=== PATIENT | female | born 1995 | race African-American/Black ===

== ENCOUNTER 2017-08-16 20:13 | Emergency (ER) | payer MEDICAID ==
[~2017-08-16] VITALS: Ht 152.4 cm; Wt 73.6 kg
[2017-08-16 20:18] VITALS: Ht 152.4 cm; Wt 73.6 kg
[2017-08-16 20:56] LABS: HCG URINE NEGATIVE (NEGATIVE)
[2017-08-16 21:25] LABS: APPEARANCE CLEAR (CLEAR); BILIRUBIN NEGATIVE (NEGATIVE); COLOR YELLOW (YELLOW); GLUCOSE NEGATIVE (NEGATIVE); KETONE NEGATIVE (NEGATIVE); NITRITE NEGATIVE (NEGATIVE); PROTEIN NEGATIVE (NEGATIVE); SPECIFIC GRAVITY 1.015 (1.005-1.020); UROBILINOGEN NORMAL (NORMAL)
[2017-08-16 21:27] LABS: BACTERIA MODERATE /hpf (NONE SEEN); EPITHELIAL CELLS 0-5 /hpf (0-5); RED CELLS - URINE OCC /hpf (0-5); WHITE CELLS - URINE 0-5 /hpf (0-5)
[2017-08-16 22:36] VITALS: BP 135/70
== END 2017-08-16 22:36 | disposition home or self-care (01) ==
LOC: D.ER 20:13
PROVIDERS: Family Medicine
DX: N92.6 Irregular menstruation, unspecified (principal); F17.200 Nicotine dependence, unspecified, uncomplicated

== ENCOUNTER 2017-08-30 09:04 | Emergency (ER) | payer MEDICAID ==
[~2017-08-30] VITALS: Ht 152.4 cm; Wt 75.0 kg
[2017-08-30 09:09] VITALS: Ht 152.4 cm; Wt 75.0 kg
[2017-08-30 10:15] LABS: BASOPHILS 0.2 % (0-2); EOSINOPHILS 2.8 % (0-7); HEMATOCRIT 43.3 % (36.0-48.0); HEMOGLOBIN 14.8 g/dL (12-16); IMMATURE GRANULOCYTES 0.6 % (0-5); LYMPHOCYTES 34.8 % (15-50); MCH 29.8 pg (26.0-34.0); MCHC 34.2 g/dL (31.0-37.0); MCV 87.1 fL (80.0-100.0); MEAN PLATELET VOLUME 9.6 fL (7.4-10.4); MONOCYTES 7.4 % (2-11); NEUTROPHILS 54.2 % (40-80); PLATELET COUNT 301 10x3/uL (130-400); RBC 4.97 10x6/uL (4.00-5.40); RDW 12.9 % (11.5-14.5); WBC 9.6 10x3/uL (4.8-10.8)
[2017-08-30 10:27] LABS: HCG URINE NEGATIVE (NEGATIVE)
[2017-08-30 10:30] LABS: ALBUMIN 3.8 g/dL (3.4-5.0); ANION GAP 10.1 mmol/L (8-16); BILIRUBIN - TOTAL 0.51 mg/dL (0.2-1.3); CALCIUM 9.6 mg/dL (8.5-10.1); POTASSIUM - SERUM 4.1 mmol/L (3.5-5.1); PROTEIN - SERUM 8.6 g/dL (6.4-8.2)
[2017-08-30] MEDS ORDERED: VIBRAMYCIN 100100 MG PO (13:05)
[2017-08-30] MEDS ORDERED: MEDROL DOSE PACK4 MG PO (13:05)
[2017-08-30 19:43] VITALS: BP 124/83
== END 2017-08-30 13:20 | disposition home or self-care (01) ==
LOC: D.ER 09:04
PROVIDERS: Family Medicine
DX: J06.9 Acute upper respiratory infection, unspecified (principal); J40 Bronchitis, not specified as acute or chronic; F17.200 Nicotine dependence, unspecified, uncomplicated

== ENCOUNTER 2019-08-23 15:24 | Emergency (ER) | payer OTHER ==
[~2019-08-23] VITALS: Ht 152.4 cm; Wt 79.5 kg
[~2019-08-23 15:24] MED LIST: MEDROL DOSE PACK4 MG PO; VIBRAMYCIN 100100 MG PO
[2019-08-23 15:46] VITALS: BP 123/89; Ht 152.4 cm; Wt 79.5 kg
[2019-08-23] MEDS ORDERED: PROCTOFOAM-HC 110 GM RC (16:58)
[2019-08-23 17:52] LABS: HCG SERUM NEGATIVE (NEGATIVE)
== END 2019-08-23 18:26 | disposition home or self-care (01) ==
LOC: D.ER 15:24
PROVIDERS: Family Medicine
DX: K64.5 Perianal venous thrombosis (principal)

== ENCOUNTER 2019-09-16 17:50 | Emergency (ER) | payer OTHER ==
[~2019-09-16] VITALS: Ht 152.4 cm; Wt 79.5 kg
[~2019-09-16 17:50] MED LIST changes: +PROCTOFOAM-HC 110 GM RC
[2019-09-16 18:24] VITALS: Ht 152.4 cm; Wt 79.5 kg
[2019-09-16 19:29] LABS: HEMATOCRIT 44.8 % (36.0-48.0); HEMOGLOBIN 14.9 g/dL (12-16); LYMPHOCYTES 21.5 % (15-50); MCH 28.8 pg (26.0-34.0); MCHC 33.3 g/dL (31.0-37.0); MCV 86.7 fL (80.0-100.0); MEAN PLATELET VOLUME 9.2 fL (7.4-10.4); NEUTROPHILS 69.7 % (40-80); PLATELET COUNT 347 10x3/uL (130-400); RBC 5.17 10x6/uL (4.00-5.40); RDW 13.3 % (11.5-14.5); WBC 9.5 10x3/uL (4.8-10.8)
[2019-09-16 19:32] LABS: BILIRUBIN NEGATIVE (NEGATIVE); GLUCOSE NEGATIVE (NEGATIVE); KETONE NEGATIVE (NEGATIVE); NITRITE NEGATIVE (NEGATIVE); SPECIFIC GRAVITY 1.015 (1.005-1.020); UROBILINOGEN NORMAL (NORMAL)
[2019-09-16 19:33] LABS: HCG URINE NEGATIVE (NEGATIVE)
--- NOTE | 2019-09-16 19:38 | NUR ---
DR. MURRAY NOTIFIED AND SITTER ORDERE. SITTER AT BEDSIDE. NOTIFIED CHARGE NURSE AND ATTENDING IN REGARDS TO ASSESSMENT FINDINGS. RESOURCES GIVEN TO PT AND SAFETY PLAN INITIATED.
[2019-09-16 19:43] LABS: CALCIUM 8.9 mg/dL (8.5-10.1); CARBON DIOXIDE 28.3 mmol/L (21.0-32.0); CREATININE - SERUM 1.3 mg/dL (0.6-1.3); POTASSIUM - SERUM 4.3 mmol/L (3.5-5.1)
[2019-09-16 19:44] LABS: UDS - AMPHET NEGATIVE QUAL (NEGATIVE); UDS - BARB NEGATIVE QUAL (NEGATIVE); UDS - BENZO NEGATIVE QUAL (NEGATIVE); UDS - COCAINE NEGATIVE QUAL (NEGATIVE); UDS - OPIATE NEGATIVE QUAL (NEGATIVE); UDS - PCP NEGATIVE QUAL (NEGATIVE); UDS - THC POSITIVE QUAL (NEGATIVE)
[2019-09-16 19:58] LABS: ALBUMIN 3.6 g/dL (3.4-5.0); BILIRUBIN - TOTAL 0.37 mg/dL (0.2-1.3); THYROID STIMULATING HORMONE 1.02 uIU/mL (0.36-3.74)
[2019-09-16 22:33] VITALS: BP 132/89
== END 2019-09-16 22:50 ==
LOC: D.ER 17:50
PROVIDERS: Family Medicine
DX: R45.851 Suicidal ideations (principal); F32.9 Major depressive disorder, single episode, unspecified